=== PATIENT | male | born 1985 | race Two or more races ===

== ENCOUNTER 2020-09-13 09:07 | Day surgery (SDC) | payer OTHER ==
[~2020-09-13] VITALS: Ht 165.1 cm; Wt 52.2 kg
[2020-09-13] MEDS ORDERED: SODIUM CHLORIDE LOCK 10 ML ONE (09:20)
[2020-09-13 10:53] LABS: Basophils # (auto) 0 10 ^3/uL (0-0.2); Basophils % (auto) 0.3 % (0.0-2.0); Eosinophils # (auto) 0.1 10 ^3/uL (0-0.8); Eosinophils % (auto) 0.7 % (0.0-7.0); Hemoglobin 11.1 g/dL (13.5-17.5); Lymphocytes # (auto) 1.6 10 ^3/uL (0.4-5.4); Lymphocytes % (auto) 19.1 % (10.0-50.0); Mean Corpuscular Hemoglobin 30.2 pg (28.0-32.0); Mean Corpuscular Volume 83.8 fL (80.0-100.0); Monocytes # (auto) 0.5 10 ^3/uL (0-1.3); Neutrophils # (auto) 6.1 10 ^3/uL (1.6-8.6); Neutrophils % (auto) 73.9 % (37.0-80.0); Red Cell Distribution Width 13.6 % (11.8-14.3); White Blood Cell 8.2 10^3/uL (4.4-10.8)
[2020-09-13 11:08] LABS: INR 1.06 (0.9-1.15); Partial Thromboplastin Time 30.4 sec (23.0-31.2)
[2020-09-13] MEDS: MIDAZOLAM HCL 5 MG/ML-1ML VIAL ONE ×4 (11:23→11:40)
[2020-09-13] MEDS: fentaNYL CITRATE 100 MCG/2 ML VL ONE ×3 (11:23→11:34)
[2020-09-13] MEDS: diphenhdrAMINE HCL 50 MG/1 ML VL ONE ×2 (11:23→11:27)
[2020-09-13 12:25] VITALS: BP 99/63
== END 2020-09-13 12:40 | disposition home or self-care (01) ==
LOC: GI 09:07
PROVIDERS: ATTEND Internal Medicine Gastroenterology
DX: R19.5 Other fecal abnormalities (principal); D12.3 Benign neoplasm of transverse colon; K63.89 Other specified diseases of intestine; K64.8 Other hemorrhoids; Z98.890 Other specified postprocedural states; Z79.899 Other long term (current) drug therapy
CPT/HCPCS: 36415; 45385; 85025; 85610; 85730; 88305; J1200; J2250; J3010; J7030; 99152; 99153